=== PATIENT | male | born 1960 | race Two or more races ===

== ENCOUNTER 2020-09-23 09:33 | Emergency (ER) | payer OTHER ==
[~2020-09-23] VITALS: Ht 170.2 cm; Wt 68.0 kg
[2020-09-23 09:37] VITALS: BP 105/65
[2020-09-23] MEDS ORDERED: HYDROcodone-ACET 5/325MG TAB PO ONE (10:15)
== END 2020-09-23 11:22 | disposition home or self-care (01) ==
LOC: ER 09:33
DX: S20.211A Contusion of right front wall of thorax, initial encounter (principal); E11.9 Type 2 diabetes mellitus without complications; X58.XXXA Exposure to other specified factors, initial encounter; Y93.89 Activity, other specified; Y92.89 Other specified places as the place of occurrence of the external cause; Y99.8 Other external cause status
CPT/HCPCS: 71101

== ENCOUNTER 2023-04-04 11:34 | Inpatient (IN) | payer MEDICAID, OTHER ==
[~2023-04-04] VITALS: Ht 157.5 cm; Wt 69.0 kg
[2023-04-04] MEDS ORDERED: ACETAMINOPHEN 325 MG TAB PO ONE (12:15)
[2023-04-04] MEDS ORDERED: levoFLOXacin 750MG 150 ML IV ONE (12:30)
[2023-04-04] MEDS ORDERED: SODIUM CHLORIDE 0.9% 2,000 ML IV ONE (12:30)
[2023-04-04 12:40] LABS: Basophils # (auto) 0 10 ^3/uL (0-0.2); Basophils % (auto) 0.2 % (0.0-2.0); Eosinophils # (auto) 0 10 ^3/uL (0-0.8); Hematocrit 46.7 % (41.0-53.0); Hemoglobin 15.9 g/dL (13.5-17.5); Lymphocytes # (auto) 0.8 10 ^3/uL (0.4-5.4); Lymphocytes % (auto) 5.6 % (10.0-50.0); Mean Corpuscular Hemoglobin 31.6 pg (28.0-32.0); Mean Corpuscular Hgb Conc. 34.1 g/dL (32.0-36.0); Mean Corpuscular Volume 92.8 fL (80.0-100.0); Monocytes # (auto) 0.9 10 ^3/uL (0-1.3); Monocytes % (auto) 6.9 % (0.0-12.0); Neutrophils # (auto) 11.8 10 ^3/uL (1.6-8.6); Neutrophils % (auto) 87.3 % (37.0-80.0); Red Blood Cells 5.04 10^6/uL (4.5-5.90); Red Cell Distribution Width 12.7 % (11.8-14.3); White Blood Cell 13.5 10^3/uL (4.4-10.8)
[2023-04-04 12:55] LABS: Alanine Aminotransferase 14 U/L (7-40); Albumin 4.6 g/dL (3.2-4.8); Alkaline Phosphatase 66 U/L (46-116); Anion Gap 10 (5-15); Aspartate Aminotransferase 28 U/L (13-40); BUN/Creatinine Ratio 12.3 (10.0-20.0); Blood Urea Nitrogen 15 mg/dL (9-23); Calcium 9.3 mg/dL (8.5-10.1); Carbon Dioxide 24 mmol/L (20-30); Chloride 98 mmol/L (98-107); Glucose 298 mg/dL (74-106); Potassium 4.1 mmol/L (3.5-5.1); Sodium 132 mmol/L (136-145)
[2023-04-04 12:56] LABS: Bilirubin, Total 1.2 mg/dL (0.2-1.0); Total Protein 7.6 g/dL (5.7-8.2)
[2023-04-04] MEDS ORDERED: SODIUM CHLORIDE 0.9% 1,000 ML IV ONE (14:30)
[2023-04-04] MEDS ORDERED: DOCUSATE SOD 100 MG CAP PO PRN (14:30)
[2023-04-04] MEDS ORDERED: DEXTROSE (50%) 50ML SYRG IV PRN (14:30)
[2023-04-04] MEDS ORDERED: HYDROcodone-ACET 5/325MG TAB PO PRN (14:30)
[2023-04-04] MEDS ORDERED: hydrALAZINE HCL 20 MG/ML VL IV PRN (14:30)
[2023-04-04] MEDS ORDERED: ONDANSETRON HCL 4 MG/2 ML VIAL IV PRN (14:30)
[2023-04-04] MEDS ORDERED: MORPHINE SULFATE INJ 2 MG/ml SYRG IV PRN (14:30)
[2023-04-04] MEDS ORDERED: ACETAMINOPHEN 500 MG TAB PO PRN (14:30)
[2023-04-04 14:49] LABS: Triglycerides 50 mg/dL (< 150)
[2023-04-04 14:50] LABS: LDL Cholesterol 67 mg/dL (< 100)
[2023-04-04 14:51] LABS: HDL Cholesterol 53 mg/dL (40-59)
[2023-04-04 14:52] LABS: Cholesterol 130 mg/dL (< 200)
[2023-04-04] MEDS: ACCU-CHEK COMFORT CURVE STRIP VI SCH ×2 (17:00→21:50)
[2023-04-04] MEDS: InsuLIN REG 1unit/0.01ml Soln (100units/ml) SC SCH ×2 (18:45→21:56)
[2023-04-04 18:53] VITALS: PULSE 104; RESP 23; O2SAT 93
[2023-04-04 19:14] LABS: Urine Bacteria NONE SEEN /hpf (None Seen); Urine Blood TRACE /uL (Negative); Urine Clarity Clear (Clear); Urine Color Yellow (Yellow); Urine Protein, UAD TRACE (Negative); Urine Urobilinogen Normal (Negative); Urine WBC 1 /hpf (0 - 3); Urine pH 5.5 (5.0-8.0)
[2023-04-04 19:20] VITALS: PULSE 100; RESP 20; O2SAT 93
[2023-04-04] MEDS ORDERED: ACETAMINOPHEN 500 MG TAB PO ONE (20:30)
[2023-04-04] MEDS ORDERED: ACETAMINOPHEN 650 mg PER 20.3 mL UD PO ONE (21:45)
[2023-04-04] MEDS ORDERED: IBUPROFEN 100MG/5ML ORAL SUSP 100 MG/5 ML UD GT ONE (21:45)
[2023-04-05] MEDS ORDERED: SODIUM CHLORIDE 0.9% 1,000 ML IV ONE (00:15)
[2023-04-05] MEDS ORDERED: ALBUMIN 25% 100 ML IV ONE (05:15)
[2023-04-05 06:06] LABS: PSA Free 0.45 ng/mL; Prostate Specific Antigen 1.1 ng/mL (0.0-4.0)
[2023-04-05] MEDS: InsuLIN REG 1unit/0.01ml Soln (100units/ml) SC SCH ×4 (07:00→21:15)
[2023-04-05] MEDS: ACCU-CHEK COMFORT CURVE STRIP VI SCH ×4 (07:00→21:03)
[2023-04-05 07:30] VITALS: PULSE 70; RESP 15; O2SAT 97
[2023-04-05] MEDS ORDERED: cefTRIAXone 1GM/50ML D5W 50 ML IV SCH ×2 (09:00)
[2023-04-05 09:18] LABS: Basophils # (auto) 0.1 10 ^3/uL (0-0.2); Basophils % (auto) 0.4 % (0.0-2.0); Eosinophils # (auto) 0 10 ^3/uL (0-0.8); Hemoglobin 14.5 g/dL (13.5-17.5); Lymphocytes # (auto) 0.9 10 ^3/uL (0.4-5.4); Lymphocytes % (auto) 5.9 % (10.0-50.0); Mean Corpuscular Hemoglobin 31.4 pg (28.0-32.0); Mean Corpuscular Hgb Conc. 33.9 g/dL (32.0-36.0); Mean Corpuscular Volume 92.8 fL (80.0-100.0); Monocytes % (auto) 6.6 % (0.0-12.0); Neutrophils # (auto) 12.7 10 ^3/uL (1.6-8.6); Neutrophils % (auto) 87.1 % (37.0-80.0); Red Blood Cells 4.63 10^6/uL (4.5-5.90); Red Cell Distribution Width 12.8 % (11.8-14.3); White Blood Cell 14.6 10^3/uL (4.4-10.8)
[2023-04-05 09:24] LABS: Chloride 105 mmol/L (98-107); Potassium 3.6 mmol/L (3.5-5.1); Sodium 136 mmol/L (136-145)
[2023-04-05 09:25] LABS: Anion Gap 6 (5-15); Calcium 8.8 mg/dL (8.5-10.1); Carbon Dioxide 25 mmol/L (20-30)
[2023-04-05 09:30] LABS: BUN/Creatinine Ratio 16.2 (10.0-20.0); Blood Urea Nitrogen 16 mg/dL (9-23); Glucose 226 mg/dL (74-106)
[2023-04-05 12:06] VITALS: BP 128/61; PULSE 105; PULSE 91; RESP 18; TEMP 98.2; O2SAT 99
[2023-04-05] MEDS ORDERED: NYSTOIN TOP (12:33)
[2023-04-05 13:00] VITALS: BP 128/61; PULSE 91; RESP 18; TEMP 98.3; O2SAT 96
[2023-04-05] MEDS: levoFLOXacin 750MG 150 ML IV SCH (13:55)
[2023-04-05] MEDS: amLODIPine BESYLATE 5 MG TAB PO SCH (13:57)
[2023-04-05] MEDS: PIPERACILLIN-TAZOB 3.375GM 100 ML IV SCH ×2 (15:38→22:55)
[2023-04-05 17:00] VITALS: BP 160/31; PULSE 92; RESP 18; TEMP 98.3; O2SAT 99
[2023-04-05 20:00] VITALS: PULSE 92; RESP 16; O2SAT 99
[2023-04-05 22:00] VITALS: BP 96/43; PULSE 94; RESP 16; TEMP 99.7; O2SAT 97
[2023-04-06 05:00] VITALS: BP 103/61; PULSE 79; RESP 16; TEMP 98.3; O2SAT 96
[2023-04-06] MEDS: PIPERACILLIN-TAZOB 3.375GM 100 ML IV SCH ×3 (06:13→22:29)
[2023-04-06] MEDS: ACCU-CHEK COMFORT CURVE STRIP VI SCH ×4 (06:13→22:29)
[2023-04-06] MEDS: InsuLIN REG 1unit/0.01ml Soln (100units/ml) SC SCH ×4 (06:19→22:45)
[2023-04-06 06:35] LABS: Basophils # (auto) 0 10 ^3/uL (0-0.2); Basophils % (auto) 0.2 % (0.0-2.0); Eosinophils # (auto) 0 10 ^3/uL (0-0.8); Eosinophils % (auto) 0.1 % (0.0-7.0); Hematocrit 41.6 % (41.0-53.0); Hemoglobin 14.2 g/dL (13.5-17.5); Lymphocytes # (auto) 1.6 10 ^3/uL (0.4-5.4); Mean Corpuscular Hemoglobin 31.7 pg (28.0-32.0); Mean Corpuscular Hgb Conc. 34.3 g/dL (32.0-36.0); Mean Corpuscular Volume 92.4 fL (80.0-100.0); Monocytes # (auto) 1.1 10 ^3/uL (0-1.3); Monocytes % (auto) 7.3 % (0.0-12.0); Neutrophils # (auto) 12.9 10 ^3/uL (1.6-8.6); Neutrophils % (auto) 82.4 % (37.0-80.0); Red Cell Distribution Width 12.6 % (11.8-14.3); White Blood Cell 15.7 10^3/uL (4.4-10.8)
[2023-04-06 07:20] LABS: Anion Gap 10 (5-15); Carbon Dioxide 20 mmol/L (20-30); Chloride 101 mmol/L (98-107); Potassium 3.2 mmol/L (3.5-5.1)
[2023-04-06 07:21] LABS: Calcium 8.5 mg/dL (8.7-10.4)
[2023-04-06 07:26] LABS: BUN/Creatinine Ratio 12.8 (10.0-20.0); Blood Urea Nitrogen 14 mg/dL (9-23); Glucose 216 mg/dL (74-106)
[2023-04-06 07:35] LABS: Sodium 131 mmol/L (136-145)
[2023-04-06 09:00] VITALS: BP 107/59; PULSE 84; RESP 19; TEMP 98.4; O2SAT 96
[2023-04-06] MEDS: amLODIPine BESYLATE 5 MG TAB PO SCH (09:22)
[2023-04-06] MEDS: levoFLOXacin 750MG 150 ML IV SCH (09:23)
[2023-04-06 13:00] VITALS: BP 117/71; PULSE 76; RESP 19; TEMP 97.5; O2SAT 96
[2023-04-06] MEDS ORDERED: POTASSIUM EFFERVESENT TAB 25 MEQ PO ONE (16:30)
[2023-04-06] MEDS: SOD CHL 0.9%/ KCL 40MEQ 1,000 ML IV SCH (17:14)
[2023-04-06 17:19] VITALS: BP 115/63; PULSE 84; RESP 17; TEMP 98.7; O2SAT 98
[2023-04-06 20:00] VITALS: BP 114/64; PULSE 94; RESP 16; TEMP 98.5
[2023-04-06 22:00] VITALS: BP 114/64; PULSE 94; RESP 16; TEMP 98.5; O2SAT 96
[2023-04-07] MEDS: SOD CHL 0.9%/ KCL 40MEQ 1,000 ML IV SCH ×3 (02:30→22:30)
[2023-04-07 04:56] VITALS: BP 106/51; PULSE 74; RESP 16; TEMP 98.2; O2SAT 94
[2023-04-07] MEDS: PIPERACILLIN-TAZOB 3.375GM 100 ML IV SCH ×3 (06:08→22:40)
[2023-04-07] MEDS: ACCU-CHEK COMFORT CURVE STRIP VI SCH ×4 (06:16→22:48)
[2023-04-07] MEDS: InsuLIN REG 1unit/0.01ml Soln (100units/ml) SC SCH ×4 (06:16→22:41)
[2023-04-07 07:31] LABS: Basophils # (auto) 0 10 ^3/uL (0-0.2); Basophils % (auto) 0.4 % (0.0-2.0); Eosinophils # (auto) 0 10 ^3/uL (0-0.8); Eosinophils % (auto) 0.1 % (0.0-7.0); Hematocrit 41.9 % (41.0-53.0); Hemoglobin 14.2 g/dL (13.5-17.5); Lymphocytes # (auto) 1.4 10 ^3/uL (0.4-5.4); Lymphocytes % (auto) 11.1 % (10.0-50.0); Mean Corpuscular Hemoglobin 31.3 pg (28.0-32.0); Mean Corpuscular Hgb Conc. 33.9 g/dL (32.0-36.0); Mean Corpuscular Volume 92.6 fL (80.0-100.0); Monocytes # (auto) 0.7 10 ^3/uL (0-1.3); Monocytes % (auto) 5.7 % (0.0-12.0); Neutrophils # (auto) 10.4 10 ^3/uL (1.6-8.6); Neutrophils % (auto) 82.7 % (37.0-80.0); Red Blood Cells 4.52 10^6/uL (4.5-5.90); Red Cell Distribution Width 12.7 % (11.8-14.3); White Blood Cell 12.6 10^3/uL (4.4-10.8)
[2023-04-07 07:55] LABS: Alanine Aminotransferase 15 U/L (7-40); Albumin 3.5 g/dL (3.2-4.8); Alkaline Phosphatase 62 U/L (46-116); Amylase 35 U/L (30-118); Anion Gap 7 (5-15); Aspartate Aminotransferase 24 U/L (13-40); BUN/Creatinine Ratio 12.2 (10.0-20.0); Bilirubin, Total 0.5 mg/dL (0.2-1.0); Blood Urea Nitrogen 11 mg/dL (9-23); Calcium 8.5 mg/dL (8.5-10.1); Carbon Dioxide 24 mmol/L (20-30); Chloride 104 mmol/L (98-107); Glucose 199 mg/dL (74-106); Sodium 135 mmol/L (136-145)
[2023-04-07 09:05] VITALS: BP 111/68; PULSE 80; RESP 20; TEMP 98.8; O2SAT 96
[2023-04-07] MEDS: amLODIPine BESYLATE 5 MG TAB PO SCH (09:27)
[2023-04-07 11:28] LABS: Lipase 49 U/L (12-53)
[2023-04-07 13:06] VITALS: BP 105/55; PULSE 79; RESP 20; TEMP 98.5; O2SAT 97
[2023-04-07 17:17] VITALS: BP 109/63; PULSE 82; RESP 20; TEMP 98.6; O2SAT 94
[2023-04-07 20:00] VITALS: BP 104/60; PULSE 73; RESP 15; TEMP 98.3
[2023-04-07 22:00] VITALS: BP 104/60; PULSE 73; RESP 15; TEMP 98.3; O2SAT 96
[2023-04-08 04:16] LABS: Basophils # (auto) 0 10 ^3/uL (0-0.2); Basophils % (auto) 0.4 % (0.0-2.0); Eosinophils # (auto) 0.1 10 ^3/uL (0-0.8); Eosinophils % (auto) 1.1 % (0.0-7.0); Hematocrit 41.1 % (41.0-53.0); Hemoglobin 14.1 g/dL (13.5-17.5); Lymphocytes # (auto) 1.6 10 ^3/uL (0.4-5.4); Lymphocytes % (auto) 19.8 % (10.0-50.0); Mean Corpuscular Hemoglobin 31.8 pg (28.0-32.0); Mean Corpuscular Hgb Conc. 34.3 g/dL (32.0-36.0); Mean Corpuscular Volume 92.7 fL (80.0-100.0); Monocytes # (auto) 0.7 10 ^3/uL (0-1.3); Neutrophils # (auto) 5.5 10 ^3/uL (1.6-8.6); Neutrophils % (auto) 69.7 % (37.0-80.0); Red Blood Cells 4.44 10^6/uL (4.5-5.90); Red Cell Distribution Width 12.7 % (11.8-14.3); White Blood Cell 7.9 10^3/uL (4.4-10.8)
[2023-04-08 04:34] LABS: Alanine Aminotransferase 25 U/L (7-40); Albumin 3.4 g/dL (3.2-4.8); Alkaline Phosphatase 67 U/L (46-116); Anion Gap 7 (5-15); Aspartate Aminotransferase 42 U/L (13-40); BUN/Creatinine Ratio 10.2 (10.0-20.0); Bilirubin, Total 0.5 mg/dL (0.2-1.0); Blood Urea Nitrogen 10 mg/dL (9-23); Calcium 8.8 mg/dL (8.7-10.4); Carbon Dioxide 23 mmol/L (20-30); Chloride 107 mmol/L (98-107); Glucose 148 mg/dL (74-106); Potassium 3.9 mmol/L (3.5-5.1); Sodium 137 mmol/L (136-145)
[2023-04-08 05:00] VITALS: BP 104/74; PULSE 71; RESP 15; TEMP 97.7; O2SAT 97
[2023-04-08] MEDS: PIPERACILLIN-TAZOB 3.375GM 100 ML IV SCH ×2 (05:23→14:11)
[2023-04-08] MEDS: InsuLIN REG 1unit/0.01ml Soln (100units/ml) SC SCH ×4 (06:28→21:34)
[2023-04-08] MEDS: ACCU-CHEK COMFORT CURVE STRIP VI SCH ×4 (06:29→21:34)
[2023-04-08 09:00] VITALS: BP 115/61; PULSE 75; RESP 18; TEMP 98.3; O2SAT 95
[2023-04-08] MEDS: amLODIPine BESYLATE 5 MG TAB PO SCH (10:39)
[2023-04-08] MEDS: SOD CHL 0.9%/ KCL 40MEQ 1,000 ML IV SCH ×2 (10:49→18:34)
[2023-04-08 13:00] VITALS: BP 118/64; PULSE 90; RESP 18; TEMP 98.8; O2SAT 95
[2023-04-08] MEDS: metroNIDAZOLE 500MG/100ML 100 ML IV SCH ×2 (16:23→21:29)
[2023-04-08 16:41] VITALS: BP 116/67; PULSE 93; RESP 20; TEMP 98.7; O2SAT 93
[2023-04-08 18:50] LABS: INR 1.01 (0.9-1.15); Partial Thromboplastin Time 29.3 SEC (24.5-34.5); Prothrombin Time 10.6 sec (9.3-11.8)
[2023-04-08 22:00] VITALS: BP_SYST 116; BP_SYST 131; BP_DIAS 67; BP_DIAS 76; PULSE 85; PULSE 89; RESP 16; RESP 17; TEMP 98.1; O2SAT 94
[2023-04-09] VITALS (7 sets, daily range): BP systolic 113–134; BP diastolic 63–73; PULSE 67–98; RESP 15–19; TEMP 98.2–98.5; O2SAT 94–100
[2023-04-09] MEDS: SOD CHL 0.9%/ KCL 40MEQ 1,000 ML IV SCH ×2 (05:50→15:43)
[2023-04-09] MEDS: metroNIDAZOLE 500MG/100ML 100 ML IV SCH ×3 (05:53→21:08)
[2023-04-09] MEDS: InsuLIN REG 1unit/0.01ml Soln (100units/ml) SC SCH ×4 (06:15→21:16)
[2023-04-09] MEDS: ACCU-CHEK COMFORT CURVE STRIP VI SCH ×4 (06:16→21:10)
[2023-04-09] MEDS: cefTRIAXone 1GM/50ML D5W 50 ML IV SCH (09:16)
[2023-04-09] MEDS: amLODIPine BESYLATE 5 MG TAB PO SCH (09:18)
[2023-04-09] MEDS ORDERED: ceFAZolin 2 GM/D5W100ml 100 ML IV ONE (17:30)
[2023-04-09] MEDS ORDERED: fentaNYL CITRATE 100 MCG/2 ML VL ONE (17:55)
[2023-04-09] MEDS ORDERED: MEPERIDINE HCL (50 MG/ML) 1 ML VIAL ONE (17:55)
[2023-04-09] MEDS ORDERED: MIDAZOLAM HCL 2MG/2ML 2ml VIAL (1mg/ml) ONE (17:55)
[2023-04-09] MEDS ORDERED: ONDANSETRON HCL 4 MG/2 ML VIAL IV PRN (18:30)
[2023-04-09] MEDS ORDERED: LABETALOL HCL 5 MG/ML 4ML SYRINGE IV PRN (18:30)
[2023-04-09] MEDS ORDERED: MORPHINE SULFATE 4 MG/ML SYR/VIAL IV PRN (18:30)
[2023-04-09] MEDS ORDERED: hydrALAZINE HCL 20 MG/ML VL IV PRN (18:30)
[2023-04-09] MEDS ORDERED: MIDAZOLAM HCL 2MG/2ML 2ml VIAL (1mg/ml) IV PRN (18:30)
[2023-04-09] MEDS ORDERED: ePHEDrine SULFATE 50 MG/ML AMP IV PRN (18:30)
[2023-04-09] MEDS ORDERED: PROPOFOL 10 MG/ML 20 ML IV ONE (19:01)
[2023-04-09] MEDS ORDERED: DexAMETHasone SOD PHOS 10MG/1ML VIAL INJ ONE (19:01)
[2023-04-09] MEDS ORDERED: ONDANSETRON HCL 4 MG/2 ML VIAL ONE (19:01)
[2023-04-09] MEDS ORDERED: SUGAMMADEX 200mg/2ml Vial (100MG/ML) IV ONE (19:02)
[2023-04-09] MEDS: HYDROmorphone HCL 2 MG/ML VL/or syr IV PRN (19:40)
[2023-04-09] MEDS: KETOROLAC TROMETH 30 MG/ML 1ML VIAL IV ONE (19:40)
[2023-04-10] MEDS: SOD CHL 0.9%/ KCL 40MEQ 1,000 ML IV SCH ×2 (01:54→10:30)
[2023-04-10 05:00] VITALS: BP 117/73; PULSE 87; RESP 18; TEMP 98.5; O2SAT 96
[2023-04-10] MEDS: metroNIDAZOLE 500MG/100ML 100 ML IV SCH ×2 (06:23→14:19)
[2023-04-10] MEDS: InsuLIN REG 1unit/0.01ml Soln (100units/ml) SC SCH ×2 (06:24→11:44)
[2023-04-10] MEDS: ACCU-CHEK COMFORT CURVE STRIP VI SCH ×2 (06:24→11:45)
[2023-04-10] MEDS: cefTRIAXone 1GM/50ML D5W 50 ML IV SCH (08:15)
[2023-04-10] MEDS: amLODIPine BESYLATE 5 MG TAB PO SCH (08:16)
[2023-04-10 08:37] VITALS: BP 117/74; PULSE 97; RESP 18; TEMP 98; O2SAT 94
[2023-04-10 08:47] LABS: Hematocrit 45.6 % (41.0-53.0); Hemoglobin 15.3 g/dL (13.5-17.5); Mean Corpuscular Hemoglobin 31.6 pg (28.0-32.0); Mean Corpuscular Hgb Conc. 33.6 g/dL (32.0-36.0); Red Blood Cells 4.85 10^6/uL (4.5-5.90); White Blood Cell 10.7 10^3/uL (4.4-10.8)
[2023-04-10 08:52] LABS: Band Neutrophils % (manual) 0; Basophils % (manual) 0 (0.0-2.0); Blast Cells 0; Eosinophils % (manual) 0 (0-7); Promyelocytes % 0; Reactive Lymphocytes 0
[2023-04-10 08:57] LABS: Alanine Aminotransferase 53 U/L (7-40); Albumin 3.6 g/dL (3.2-4.8); Alkaline Phosphatase 78 U/L (46-116); Anion Gap 9 (5-15); Blood Urea Nitrogen 15 mg/dL (9-23); Calcium 8.5 mg/dL (8.5-10.1); Carbon Dioxide 21 mmol/L (20-30); Chloride 106 mmol/L (98-107); Glucose 215 mg/dL (74-106); Potassium 4.5 mmol/L (3.5-5.1); Sodium 136 mmol/L (136-145)
[2023-04-10 08:58] LABS: Aspartate Aminotransferase 66 U/L (13-40); Bilirubin, Total 0.4 mg/dL (0.2-1.0); Total Protein 6.4 g/dL (5.7-8.2)
[2023-04-10 09:11] LABS: Lymphocytes % (manual) 12 (10.0-50.0); Metamyelocytes % 1; Monocytes % (manual) 1 (0-12); Myelocytes % 1; Platelet Estimate Adequate
[2023-04-10 13:09] VITALS: BP 123/43; PULSE 63; RESP 18; TEMP 97.6; O2SAT 97
[2023-04-10] MEDS ORDERED: ATOR40TA52 PO (15:37)
[2023-04-10] MEDS ORDERED: LEVO500T91 PO (15:37)
[2023-04-10] MEDS ORDERED: METF-371 PO (15:37)
[2023-04-10] MEDS ORDERED: AML5T PO (15:37)
[2023-04-10 15:45] VITALS: BP 123/43; PULSE 63; RESP 18; TEMP 97.6; O2SAT 97
== END 2023-04-10 16:30 | disposition home or self-care (01) | DRG 710 ==
LOC: ER 11:34 → OVERFLOW 14:34 → WEST WING 04-05 09:21
PROVIDERS: ADMIT Nurse Practitioner Acute Care; ATTEND Nurse Practitioner Acute Care
PROC: 0FT44ZZ Resection of Gallbladder, Percutaneous Endoscopic Approach (ICD-10-PCS; principal; 2023-04-09 17:55)
DX: A41.9 Sepsis, unspecified organism (principal); K80.10 Calculus of gallbladder with chronic cholecystitis without obstruction; N30.90 Cystitis, unspecified without hematuria; E11.9 Type 2 diabetes mellitus without complications; I10 Essential (primary) hypertension; K57.90 Diverticulosis of intestine, part unspecified, without perforation or abscess without bleeding; E87.6 Hypokalemia; E78.5 Hyperlipidemia, unspecified; R33.9 Retention of urine, unspecified; K66.0 Peritoneal adhesions (postprocedural) (postinfection); Z83.3 Family history of diabetes mellitus; Z79.84 Long term (current) use of oral hypoglycemic drugs; Z79.899 Other long term (current) drug therapy
CPT/HCPCS: 36415; 51702; 71045; 74176; 76705; 78226; 80048; 80053; 80061; 81001; 82150; 82962; 83036; 83605; 83690; 84154; 85007; 85025; 85027; 85610; 85730; 86850; 86900; 86901; 87040; 87086; 93005; 96365; 96372; G0378; J0696; J1100; J1815; J1885; J1956; J2250; J2405; J2543; J2704; J3490; P9047